=== PATIENT | male | born 1965 | race Caucasian/White ===

== ENCOUNTER 2018-12-26 12:37 | Emergency (ER) | payer BC ==
[~2018-12-26] VITALS: Wt 83.7 kg
[2018-12-26] MEDS ORDERED: SOD CHLORIDE 0.9% 1,000 ML IV STA (16:41)
[2018-12-26] MEDS ORDERED: SOD CHLORIDE 0.9% 100 ML ONE ×2 (17:00→19:09)
[2018-12-26] MEDS ORDERED: IODIXANOL LOCM 100 ML BTL ONE (17:00)
[2018-12-26] MEDS ORDERED: IOHEXOL 100 ML ONE (19:09)
--- NOTE | 2018-12-26 19:56 | ERD ---
ER Documentation Chief Complaint Chief Complaint bib self, referred by pmd, cc: sudden onset headache, left eye blindness, HPI This is a 53-year-old male who presents to the emergency room for evaluation of a headache and left eye blindness. This patient states that his headache occurred yesterday December 25, 2018 in the afternoon around 2 PM. He states that it was mostly left-sided and did feel like a tearing sensation. The patient states that his headache progressively got worse throughout the night and he noticed that he had vision loss in the left eye this morning. The patient did go to his primary care physician and his primary care physician referred him to the emergency room and the patient was brought in by his friend for evaluation. The patient states that his headache is located on the left side of his head and states that he has no vision in the left eye. ROS All systems reviewed and are negative except as per history of present illness. Allergies Allergies: Coded Allergies: No Known Allergy (Unverified , 12/26/18) PMhx/Soc Medical and Surgical Hx: pt denies Medical Hx, pt denies Surgical Hx Hx Alcohol Use: No Hx Substance Use: No Hx Tobacco Use: No Smoking Status: Current some day smoker Physical Exam Vitals Vital Signs Date Temp Pulse Resp B/P (MAP) Pulse Ox O2 O2 Flow FiO2 Time Delivery Rate 12/26/18 46 21 117/83 98 Room Air 20:00 (94) 12/26/18 48 13 131/91 99 Room Air 19:00 (104) 12/26/18 49 15 134/85 99 Room Air 18:51 (101) 12/26/18 54 17 136/92 100 Room Air 17:47 (107) 12/26/18 Nasal 2 17:10 Cannula 12/26/18 98.0 53 19 150/90 100 12:41 (110) Physical Exam INITIAL VITAL SIGNS: Reviewed by me GENERAL: The patient is well developed and appropriate for usual state of health in no apparent distress HEENT: Left pupil is approximately 5 mm, nonresponsive to light nonreactive, no corneal abrasion, vitreous hemorrhage noted in the fundus, right pupil is a round and reactive to light. EOMI. There is no scleral icterus. NECK: C-spine is soft and supple, there is no meningismus. There is no cervical lymphadenopathy. LUNGS: Clear to auscultation bilaterally. There are no rales, wheezes or rhonchi. HEART: Regular rate and rhythm, no murmurs, clicks, rubs or gallops. ABDOMEN: Soft, non-tender, non-distended. There are bowel sounds in all four quadrants. No rebound or guarding. EXTREMITIES: There is no peripheral cyanosis or edema. No focal swelling or erythema. NEUROLOGICAL: Cranial nerve III deficit noted on the left. There is no pupillary reflex on the left, nonreactive to light, the patient moves all four extremities with 5/5 strength. SKIN: There is no apparent rash or petechiae. HEME/LYMPHATIC: There is no evidence of excessive bruising or lymphedema. PSYCHIATRIC: The patient does not appear anxious or depressed. Result Diagram: 12/26/18 1655 12/26/181654 Results 24 hrs Laboratory Tests Test 12/26/18 16:54 12/26/18 16:55 12/26/18 17:07 Bedside Glucose 96 mg/dL White Blood Count 5.5 10^3/ul Red Blood Count 4.73 10^6/ul Hemoglobin 14.0 g/dl Hematocrit 42.3 % Mean Corpuscular Volume 89.4 fl Mean Corpuscular Hemoglobin 29.6 pg Mean Corpuscular 33.1 g/dl Hemoglobin Concent Red Cell Distribution Width 12.9 % Platelet Count 209 10^3/UL Mean Platelet Volume 9.5 fl Immature Granulocytes % 0.200 % Neutrophils % 42.8 % Lymphocytes % 48.5 % Monocytes % 7.6 % Eosinophils % 0.7 % Basophils % 0.2 % Nucleated Red Blood Cells % 0.0 /100WBC Immature Granulocytes # 0.010 10^3/ul Neutrophils # 2.4 10^3/ul Lymphocytes # 2.7 10^3/ul Monocytes # 0.4 10^3/ul Eosinophils # 0.0 10^3/ul Basophils # 0.0 10^3/ul Nucleated Red Blood Cells # 0.0 10^3/ul Prothrombin Time 11.8 Sec Prothrombin Time Ratio 0.9 INR International 0.86 Normalized Ratio Activated Partial Thromboplast 24.1 Sec Time Sodium Level 143 mmol/L Potassium Level 3.9 mmol/L Chloride Level 105 mmol/L Carbon Dioxide Level 26 mmol/L Anion Gap 12 Blood Urea Nitrogen 8 mg/dl Creatinine 0.49 mg/dl Est Glomerular Filtrat > 60 mL/min Rate mL/min Glucose Level 92 mg/dl Hemoglobin A1c 5.5 % Calcium Level 9.6 mg/dl Troponin I < 0.012 ng/ml Triglycerides Level 111 mg/dl Cholesterol Level 212 mg/dl LDL Cholesterol, Calculated 136 mg/dl HDL Cholesterol 54 mg/dl Cholesterol/HDL Ratio 3.9 RATIO Urine Color YELLOW Urine Clarity CLEAR Urine pH 7.0 Urine Specific [place] 1.009 Urine Ketones NEGATIVE mg/dL Urine Nitrite NEGATIVE mg/dL Urine Bilirubin NEGATIVE mg/dL Urine Urobilinogen NEGATIVE mg/dL Urine Leukocyte Esterase NEGATIVE Rima/ul Urine Hemoglobin NEGATIVE mg/dL Urine Glucose NEGATIVE mg/dL Urine Total Protein NEGATIVE mg/dl Urine Opiates Screen Negative Urine Barbiturates Negative Urine Amphetamines Screen Negative Urine Benzodiazepines Screen Negative Urine Cocaine Screen Negative Urine Cannabinoids Negative Current Medications Medications Dose Sig/Ana Start Time Status Last (Trade) Ordered Route PRN Stop Time Admin Dose Reason Admin Sodium 1,000 ml @ Q1H STAT 12/26/18 DC 12/26/18 Chloride 1,000 mls/hr IV 16:41 17:25 12/26/18 17:40 Iodixanol 100 ml STK-MED 12/26/18 DC (Visipaque ONCE .ROUTE 17:00 Locm) 12/26/18 17:01 Sodium 100 ml @ ud STK-MED 12/26/18 DC Chloride ONCE .ROUTE 17:00 12/26/18 17:01 IV Flush 10 ml STK-MED 12/26/18 DC (NS 10 ml) ONCE .ROUTE 19:09 12/26/18 19:10 Sodium 100 ml @ ud STK-MED 12/26/18 DC Chloride ONCE .ROUTE 19:09 12/26/18 19:10 Iohexol 100 ml @ ud STK-MED 12/26/18 DC ONCE .ROUTE 19:09 12/26/18 19:10 Procedures/MDM 1758: Presented the case MAC team and they are trying to find ophthalmology 1920: Received a call from [facility] and they state that they are still working on trying to find this patient a specialist at this time. Patient remains hemodynamically stable. 1957: Spoke with the radiologist he says he sees a large vitreous hemorrhage and possible retinal detachment. I have spoken with the patient in regards to findings and our disposition and the risk for permanent blindness in the left. 2004: I did speak with this patient and the patient's family members and I have told him that we are continuing to work to find him a specialist. I did state that this was time sensitive and patient does reiterate that he originally had his symptoms of headache and visual disturbance greater than 24 hours ago. The patient and the patient's family members state that they would like to go to another hospital that has a family engagement specialist. I advised him that if he were to leave there would leave AGAINST MEDICAL ADVICE and they risk permanent disability or complete visual loss in the left eye and blindness in the left eye. Both the patient and the patient's at bedside verbalized understanding. I have brought in a staff member for translation in the small and states that this patient does not understand the seriousness of his injury. But the patient verbalizes that he fully understands his symptoms, and he has capacity to make medical decisions at this time. This 53-year-old male presents to the emergency room for evaluation of left headache and blindness in the left eye. This patient did not have a pupillary reflex on the left. He states that the symptoms have been greater than 20 hours and he is not in the timeframe for any TPA. The patient did go a CT of the brain which shows no signs of occipital infarct. CTA of the neck and brain showed no signs of occlusion or clot burden. I did obtain a CT of the orbits and does show a large hemorrhage which is likely vitreous in nature with possible superimposed retinal detachment. I have spoken to this patient in regards to his diagnosis and I have advised him that we are working with [facility] team to obtain a psychiatry adult physician for this patient. The patient states that he does not want to wait any longer would like to go to hospital himself that has a psychiatry adult physician. I did advise him that this could be a time sensitive issue and he could have temporary or permanent blindness in the left eye permanent disability. The patient does verbalize understanding, his is at bedside and does verbalize understanding. I did bring a [employer] sales and service supervisor to speak with them and the small chance that they did not understand all of my reasoning and all of my explanation and marina sales and service supervisor has spoken to them in [place] and the again verbalized understanding. The patient does have capacity to make medical decisions and will be discharged AMA at this time. The patient was given all of his CAT scans on a disc and I have put out the results for them. The patient was given a map and directions to [facility] with a would like to go. I did advise him that if they were to change her mind at any moment they can return to the emergency room for reevaluation and they verbalized understanding. Departure Diagnosis: Primary Impression: Blindness of left eye Additional Impressions: Retinal detachment, left Vitreous hemorrhage, left eye Condition: Serious CHARLOTTE BARAJAS DO Dec 26, 2018 19:55
[2018-12-26 20:58] VITALS: BP 115/77; PULSE 51; RESP 15
== END 2018-12-26 21:55 | disposition left against medical advice (07) ==
LOC: E/R 12:37
DX: H54.42A3 Blindness left eye category 3, normal vision right eye (principal); H33.22 Serous retinal detachment, left eye; H43.12 Vitreous hemorrhage, left eye; F17.210 Nicotine dependence, cigarettes, uncomplicated; R53.1 Weakness
CPT/HCPCS: 36415; 70450; 70480; 70496; 70498; 71045; 80048; 80061; 80307; 81003; 82962; 83036; 84484; 85025; 85610; 85730; 93005; J7030; Q9967; Z7502; Z7610